=== PATIENT | female | born 1940 | race Caucasian/White ===

== ENCOUNTER 2023-02-03 13:55 | Emergency (ER) | payer MEDICARE, BC ==
[~2023-02-03] VITALS: Ht 154.9 cm; Wt 62.8 kg
[2023-02-03] MEDS ORDERED: ATENOLOL100 MG PO (14:21)
[2023-02-03] MEDS ORDERED: AMLODIPINE BESYL5 MG PO (14:24)
[2023-02-03] MEDS ORDERED: POTASSIUM CH2 MEQ/ML PO (14:24)
[2023-02-03 15:23] LABS: HEMOGLOBIN 15.7 g/dL (12.5-16.0); MEAN CELL VOLUME 83 fl (78-100); MEAN CORPUSCULAR HEMOGLOBIN 28 pg (27-31); MEAN CORPUSCULAR HGB CONC 33 g/dL (33-37); MEAN PLATELET VOLUME 10.2 fl (7.4-10.4); PLATELET COUNT 359 K/mm3 (130-400); RED BLOOD COUNT 5.68 M/mm3 (4.10-5.30); RED CELL DISTRIBUTION WIDTH 14.1 % (11.5-14.5); WHITE BLOOD COUNT 17.3 K/mm3 (4.8-10.8)
[2023-02-03 15:24] LABS: ALBUMIN 3.7 g/dL (3.4-4.8)
[2023-02-03 15:26] LABS: CALCIUM 9.7 mg/dL (8.3-10.5)
[2023-02-03 15:27] LABS: TOTAL PROTEIN 5.7 g/dL (6.2-8.1)
[2023-02-03 15:29] LABS: TOTAL BILIRUBIN 0.8 mg/dL (0.2-1.2)
[2023-02-03 16:06] LABS: URINE APPEARANCE CLOUDY; URINE BILIRUBIN NEGATIVE (NEGATIVE); URINE BLOOD TRACE (NEGATIVE); URINE COLOR DK YELLOW; URINE GLUCOSE NEGATIVE (NEGATIVE); URINE KETONE 2+ (NEGATIVE); URINE LEUKOCYTE ESTERASE NEGATIVE (NEGATIVE); URINE NITRATE NEGATIVE (NEGATIVE); URINE PROTEIN(semi-quant) TRACE (NEGATIVE); URINE UROBILINOGEN NORMAL (NORMAL); URINE WBC 0-1 /hpf (0-3)
[2023-02-03 16:07] LABS: URINE MUCUS PRESENT (NOT PRESENT)
[2023-02-03 18:05] LABS: BAND 5 % (0-10); LYMPHOCYTE 5 % (20-51); MONOCYTE 8 % (3-10); NEUTROPHILS 82 % (42-75)
[2023-02-03 23:00] VITALS: BP 164/89
== END 2023-02-03 23:14 | disposition short-term general hospital (02) ==
LOC: ED 13:55
PROVIDERS: Physician Assistant
DX: R11.2 Nausea with vomiting, unspecified (principal); R53.1 Weakness; N73.9 Female pelvic inflammatory disease, unspecified; R10.32 Left lower quadrant pain; I10 Essential (primary) hypertension; Z20.822 Contact with and (suspected) exposure to COVID-19; Z79.899 Other long term (current) drug therapy; Z88.0 Allergy status to penicillin; Z88.2 Allergy status to sulfonamides
CPT/HCPCS: J0696; J1836; J2405; J7030; Q9967